=== PATIENT | female | born 1985 | race Caucasian/White ===

== ENCOUNTER → 2024-10-05 14:12 | Outpatient (REF) | payer OTHER, SELFPAY | LOC: RAD 14:12 | PROVIDERS: ATTENDING PHYSICIAN Nurse Practitioner Adult Health | DX: R05.1 Acute cough (principal); J45.40 Moderate persistent asthma, uncomplicated | CPT/HCPCS: 71046 ==

== ENCOUNTER 2025-02-05 00:47 | Emergency (ER) | payer OTHER, SELFPAY ==
[2025-02-05 00:59] VITALS: BP 129/68
[2025-02-05 01:35] LABS: COVID-19 Antigen Negative (Negative)
[2025-02-05] MEDS: DUONEB 3 ML INH (02:03)
[2025-02-05 02:04] VITALS: BMI 19.2
--- NOTE | 2025-02-05 02:09 | ED.GENMED ---
History of Present Illness
General
Chief Complaint: Breathing Problem
Source: patient
Exam Limitations: none
Time Seen by Provider: 02/05/25 02:00
History of Present Illness
History of Present Illness:
39yoF with a history of childhood asthma presenting for evaluation of a cough. She started with URI symptoms 2 days ago with cough and congestion. She feels that her illness has settled into her chest. She was having some chest tightness this
evening which was not improved with her albuterol inhaler. She does feel much better currently. She denies any fevers. Of note, patient follows with pulmonology for her breathing issues. She was previously prescribed montelukast which she ran
out of several months ago. No tobacco use.
Past History
Past History
ED Past Medical History: Psychiatric
Social History
Tobacco: Non-smoker
Personal:
Living: with family
Family History
Family History: Other (Noncontributory)
Phy Exam
General Physical Exam
General Presentation: well appearing and no apparent distress
General age: appears stated age
General Skin: warm and dry
General Habitus: normal
General Mental: alert
ENT Exam
ENT Exam: normocephalic
Cardiovascular Exam
Cardiovascular Exam: regular rate/rhythm and no murmur
Pulmonary Exam
Pulmonary Exam: no respiratory distress, no rales, no crackles, no rhonchi and other (Scant inspiratory wheezes. Speaking in full sentences without difficulty)
Neurological Exam
Neurological Exam: alert
[place] Coma Scale
Eye Opening: Spontaneous
Verbal Response: Oriented
Motor Response: Obeys Commands
GCS Total Score: 15
Skin Exam
Skin Exam: normal color and warm/dry
Psychiatric Exam
Psychiatric Exam: normal mood/affect
Course
Orders/Labs/Results
Orders:
Orders
02/05/25 01:11
COVID-19 Antigen Urgent
Source: Nasal Swab
Influenza A+B Rapid Molecular Urgent
SARA Source: Nasal Swab
Specimen Description:
02/05/25 01:50
CXR2 [CR Chest - 2 Views ] Urgent
Comment:
Reason For Exam: shortness of breath
02/05/25 02:01
Ipratropium/Albuterol Sulfate [Duoneb] 3 ml INH R NOW ONE
Vital Signs
Initial and Last Documented VS:
Initial Vital Signs
Temp Pulse Resp BP Pulse Ox
98.6 F 98 20 129/68 96
02/05/25 00:59 02/05/25 00:59 02/05/25 00:59 02/05/25 00:59 02/05/25 00:59
Last Documented Vital Signs
Temp Pulse Resp BP Pulse Ox
98.6 F 68 18 131/71 100
02/05/25 00:59 02/05/25 03:00 02/05/25 03:00 02/05/25 03:00 02/05/25 03:00
MDM/Problems Addressed
Differential Diagnosis Includes:
39yoF here with URI symptoms x 2 days. Started with chest tightness this evening. VSS. She is well-appearing. There are scant wheezes on lung exam without signs of respiratory distress. Oxygen saturation 97% on room air. Differential diagnosis
includes but is not limited to: URI, bronchitis, asthma exacerbation, pneumonia
Initial ED plan: COVID/flu test sent in triage are negative. Will give DuoNeb and check CXR.
*Pulse Oximetry
SaO2: 97
Oxygen Mode of Delivery: Room air
Patient hypoxic: no
*Critical Care Note
Total Time (30-74mins, 75-104mins- exclusive of procedures): Not Applicable
Update Note
Update Note:
Chest x-ray clear without infiltrates per my interpretation. Patient feeling improved after neb treatment. She is stable for discharge. She was started on a course of prednisone. Refills provided for montelukast and albuterol neb solution. She
was instructed to follow-up with her PCP and rollout manager. ED return precautions reviewed. Patient in agreement with plan and was discharged in stable condition.
ED Attending Note
-
Portions of this chart may have been created with voice recognition software.� Occasional wrong word or��sound alike� substitutions may have occurred due to the inherent limitations of voice recognition software.
Discharge Plan
Departure
Patient Disposition: Home (Routine Discharge)
Date of Disposition: 02/05/25
Time of Disposition: 02:59
Patient with high blood pressure during this ER visit?: No
Discharge Problem:
Acute bronchitis
Instructions: Acute Bronchitis, Adult (DC)
Prescriptions:
New
prednisone 50 mg tablet
50 mg PO DAILY Qty: 5 0RF
montelukast 10 mg tablet
10 mg PO DAILY Qty: 30 0RF
albuterol sulfate 2.5 mg /3 mL (0.083 %) solution for nebulization
2.5 mg inhalation Q6H PRN (Reason: shortness of breath or wheezing) Qty: 75 0RF
Referrals:
Analia Calabrese MD [Family Provider, Family Practice]
Activity Restrictions/Additional Instructions:
Take prednisone as prescribed. Restart your montelukast. Use nebulizer treatments as needed for wheezing.
Please follow-up with your family doctor and rollout manager. Return to the ER with any new or worsening symptoms.
Interventions
Interventions:
*Risk Screen - Suicide Last Done: 02/05/25 02:45
*General Assessment Last Done: 02/05/25 02:03
*Neglect/Abuse Screening Last Done: 02/05/25 02:09
*ED- Fall Risk Assessment Last Done: 02/05/25 02:03
*ED COVID-19 Vaccine History Last Done: 02/05/25 00:59
*Nursing Disposition Last Done: 02/05/25 03:04
ED- Cardiac Assessment Last Done: 02/05/25 02:14
ED- Pulmonary Assessment Last Done: 02/05/25 02:14
Discharge Date and Time
Print Language: ISRAELI
[2025-02-05 03:00] VITALS: BP 131/71
== END 2025-02-05 03:14 | disposition home or self-care (01) ==
LOC: EMR 00:47
PROVIDERS: Emergency Medicine; EMERGENCY PHYSICIAN Emergency Medicine; FAMILY PHYSICIAN Family Medicine
DX: J20.9 Acute bronchitis, unspecified (principal); Z87.09 Personal history of other diseases of the respiratory system; Z11.52 Encounter for screening for COVID-19
CPT/HCPCS: 94640; 99284; 71046; 87502; 87811